=== PATIENT | male | born 1965 | race Two or more races ===

== ENCOUNTER 2025-04-09 12:35 | Inpatient (IN) | payer MEDICAID, OTHER ==
[~2025-04-09] VITALS: Ht 167.6 cm; Wt 50.6 kg
[2025-04-09] MEDS ORDERED: SODIUM CHLORIDE 0.9% 1,000 ML IV ONE (13:00)
[2025-04-09] MEDS: MORPHINE SULFATE 4 MG/ML SYR/VIAL IV ONE (13:00)
[2025-04-09] MEDS ORDERED: ONDANSETRON HCL 4 MG/2 ML VIAL IV ONE (13:00)
--- NOTE | 2025-04-09 13:06 | ED.PDOC ---
GI ASSESSMENT HPI Comments 59 y/o M, with PMHx of HTN and DM presents to the ED for CC of abdominal pain. Patient states, he has been experiencing right lower quadrant abdominal pain with associated nausea x3days. Patient reports, that he has been unable to have a bowel movement in X4days and is currently not passing gas. Patient denies vomiting, diarrhea, fever, chills, or sweats. No other symptoms or modifying factors present at this time Chief Complaint: Abdominal Pain Time Seen by MD: 13:00 Reviewed Notes: Nurses Notes, Medications, Allergies Allergies: Coded Allergies: NO KNOWN ALLERGIES (Unverified , 04/09/25) Information Source: Patient Mode of Arrival: Ambulatory Timing: Days Duration: Since onset Prehospital treatment: None Quality: None Vomitus: None Stool: Impaction Severity: Moderate Recent: None Recent Hx of: None Pain Location: RLQ Modifying Factors: Nothing Associated sign and symptoms: Nausea, Abdominal Pain Past Medical History PAST MEDICAL HISTORY: DM, HTN Surgical History: Unknown Family History Family History: Unknown Social History Smoker: Non-Smoker Alcohol: Denies ETOH Use Drugs: Denies Drug Use Lives In: Home Constitutional: denies: chills, diaphoresis, fatigue, fever, malaise, sweats, weakness, others EENTM: denies: blurred vision, double vision, ear bleeding, ear discharge, ear drainage, ear pain, ear ringing, eye pain, eye redness, hearing loss, mouth pain, mouth swelling, nasal discharge, nose bleeding, nose congestion, nose pain, photophobia, tearing, throat pain, throat swelling, voice changes, others Respiratory: denies: cough, hemoptysis, orthopnea, SOB at rest, shortness of breath, SOB with excertion, stridor, wheezing, others Cardiovascular: denies: chest pain, dizzy spells, diaphoresis, Dyspnea on exertion, edema, irregular heart beat, left arm pain, lightheadedness, palpitations, PND, syncope, others Gastrointestinal: reports: abdominal pain, constipated, nausea; denies: abdomen distended, blood streaked bowels, diarrhea, dysphagia, difficulty swallowing, hematemesis, melena, poor appetite, poor fluid intake, rectal bleeding, rectal pain, vomiting, others Genitourinary: denies: burning, dysuria, flank pain, frequency, hematuria, incontinence, penile discharge, penile sore, pain, testicle pain, testicle swelling, urgency, others Neurological: denies: dizziness, fainting, headache, left sided numbness, left sided weakness, numbness, paresthesia, pre-existing deficit, right sided numbness, right sided weakness, seizure, speech problems, tingling, tremors, weakness, others Musculoskeletal: denies: back pain, gout, joint pain, joint swelling, muscle pain, muscle stiffness, neck pain, others Integumetry: denies: bruises, change in color, change in hair/nails, dryness, laceration, lesions, lumps, rash, wounds, others Allergic/Immunocompromised: denies: Difficulty Healing, Frequent Infections, Hives, Itching, others Hematologic/Lymphatic: denies: anemia, blood clots, easy bleeding, easy bruising, swollen glands, others Endocrine: denies: excessive hunger, excessive sweating, excessive thirst, excessive urination, flushing, intolerance to cold, intolerance to heat, unexplained weight gain, unexplained weight loss, others Psychiatric: denies: anxiety, bipolar disorder, depression, hopeless, panic disorder, schizophrenia, sleepless, suicidal, others All Other Systems: Reviewed and Negative Physical Exam General Appearance: Moderate Distress HEENT: Normal ENT Inspection, Pharynx Normal, TMs Normal Neck: Full Range of Motion, Non-Tender, Normal, Normal Inspection Respiratory: Chest Non-Tender, Lungs Clear, No Accessory Muscle Use, No Respiratory Distress, Normal Breath Sounds Cardiovascular: No Edema, No JVD, No Murmur, No Gallop, Normal Peripheral Pulses, Regular Rate/Rhythm Breast Exam: Deferred Gastrointestinal: Diffuse Genitalia: Deferred Pelvic: Deferred Rectal: Deferred Extremities: No calf tenderness, Normal capillary refill, Normal inspection, Normal range of motion, Non-tender, No pedal edema Musculoskeletal : Apperance: Normal Neurologic: Alert, polisher dial II-XII nml as Tested, No Motor Deficits, Normal Affect, Normal Mood, No Sensory Deficits Cerebellar Function: Normal Reflexes: Normal Skin: Dry, Normal Color, Warm Peripheral Pulses: 3+ Radial (R), 3+ Radial (L) Lymphatic: No Adenopathy Was a procedure done? Was a procedure done?: No GI differential Dx Differential Diagnosis: Appendicitis, Cholangitis, Cholecystitis, Diverticular disease, Esophagitis, Gastritis/PUD, Gastroenteritis, Inflammatory BD X-Ray, Labs, Meds, VS Vital Signs Date Time Temp Pulse Resp B/P (MAP) Pulse Ox O2 Delivery O2 Flow Rate FiO2 04/09/25 12:40 98.2 83 16 111/70 97 98.2 [facility] [id number] [facility] [id number] Ph: [phone] DIAGNOSTIC IMAGING Diagnostic Imaging Report : [id number] Signed PATIENT: CAMERON KIRKLAND ACCT: [id number] UNIT: [id number] : 1965 LOC: ER ROOM / BED: / AGE / SEX: 59 / M ADM STATUS: REG ER SERVICE 1258 ORDERING PHYSICIAN: MARIIA RUBY MD PROCEDURE(s): ABPL - CT AB PEL WO CON-NO ORAL OR IV REASON: appy ORDER NUMBER(s): [id number], ACCESSION NUMBER(s): [id number] CT CT AB PEL WO CON-NO ORAL OR IV INDICATION: appy EXAM DATE: 04/09/2025 01:00 PM COMPARISON: None RADIATION DOSE: CTDIvol: 11 mGy, DLP: 641 mGy*cm PROCEDURE: Helical CT images were obtained of the abdomen and pelvis without IV contrast Sagittal and coronal reconstructions are provided. ORAL CONTRAST: None. ADDITIONAL IMAGES / REFORMATS: None All CT scans at this medical facility are performed using dose modulation techniques as appropriate to a performed exam including the following: Automated exposure control was utilized; adjustment of the MA and/or KV according to patient size; and use of iterative reconstruction technique. FINDINGS: LUNG BASE: Bibasilar atelectasis. LIVER: Normal. GALLBLADDER AND BILIARY TREE: No calcified gallstones. Normal caliber wall. No intra- or extrahepatic biliary ductal dilation. PANCREAS: Normal. SPLEEN: Normal. BOWEL: Enlarged appendix to 12 mm with periappendicieal fat stranding is consistent with appendicitis. ADRENALS: Normal. KIDNEYS AND URETER: Normal. BLADDER: Normal. REPRODUCTIVE ORGANS: Normal. LYMPH NODES:No lymphadenopathy. PERITONEUM: No ascites or free air. No other fluid collection. VESSELS: Scattered atherosclerotic calcifications are noted. RETROPERITONEUM: Normal. ABDOMINAL WALL: Normal. BONES: Scattered osseous degenerative changes are noted. IMPRESSION: Enlarged appendix to 12 mm with periappendicieal fat stranding is consistent with appendicitis. ATED BY: ANDRÉS TILLEY MD DICTATED DATE/TIME: 04/09/251327 SIGNED BY: ANDRÉS TILLEY MD SIGNED DATE/TIME: 04/09/251327 CC: Patient alert. Complaining of abdominal pain. Vitals stable. Answering questions. Abdomen is tender. CT scan of the abdomen does show appendicitis. Establish intravenous access. Was given fluids. Was given Ancef. Was given Flagyl. Was given morphine. Was given Zofran. Explained to the patient. Continue monitoring. Time of 1ST Reevaluation: 13:30 Reevaluation 1ST: Unchanged Patient Education/Counseling: Diagnosis, Treatment Family Education/Counseling: No Family Present SEPSIS Sepsis Screen Date sepsis recognized/suspect: Apr 09, 2025 Time Sepsis recognized/suspect: 1240 Recent Procedure: No On Antibiotic Therapy: No Respiratory Rate >20: No Heart Rate >90: No Temp<36 C (96.8 F) or >38.3 C: No SBP <90 or MAP <65 mmHG: No New Acute Mental Status Change: No Is the patient on CPAP, BIPAP,: No Physician Orders Complete Blood Count (04/09/25 12:58) Comprehensive Metabolic Panel (04/09/25 12:58) Urinalysis (04/09/25 12:58) Ct Ab Pel Wo Con-No Oral Or Iv (04/09/25 12:58) Sodium Chloride 0.9% (04/09/25 13:00) * Surgical Consult (04/09/25 ) Vital Signs Date Time Temp Pulse Resp B/P (MAP) Pulse Ox O2 Delivery O2 Flow Rate FiO2 04/09/25 12:40 98.2 83 16 111/70 97 98.2 Departure 1 Departure Time of Disposition: 13:53 Impression: Primary Impression: Acute appendicitis Qualified Codes: K35.80 - Unspecified acute appendicitis Disposition: ADMITTED INPATIENT Admit to: Med Surg Condition: Guarded Critical Care Note Critical Care Time?: Yes (90 min-critical care time only) Critical care comment: Spoke to the surgeon Stability Stability form required: No Heart Score Heart Score: Heart Score Response (Comments) Value History N/A 0 EKG N/A 0 Age N/A 0 Risk Factors N/A 0 Troponin N/A 0 Total 0 I personally scribed for MARIIA RUBY MD ([email or web address]) on 04/09/25 at 13:06. Electronically submitted by Enid Orta ([email or web address]). I personally scribed for MARIIA RUBY MD ([email or web address]) on 04/09/25 at 13:35. Electronically submitted by Enid Orta [email or web address]). MARIIA RUBY MD Apr 09, 2025 13:06
--- NOTE | 2025-04-09 13:31 | DVH ---
CT CT AB PEL WO CON-NO ORAL OR IV INDICATION: appy EXAM DATE: 04/09/2025 01:00 PM COMPARISON: None RADIATION DOSE: CTDIvol: 11 mGy, DLP: 641 mGy*cm PROCEDURE: Helical CT images were obtained of the abdomen and pelvis without IV contrast Sagittal and coronal reconstructions are provided. ORAL CONTRAST: None. ADDITIONAL IMAGES / REFORMATS: None All C T scans at this medical facility are performed using dose modulation techniques as appropriate to a p erformed exam including the following: Automated exposure control was utilized; adjustment of the MA and/or KV according to patient size; and use of iterative reconstruction technique. FINDINGS: LUNG BASE: Bibasilar atelectasis. LIVER: Normal. GALLBLADDER AND BILIARY TREE: No calcified gallstones. Normal caliber wall. No intra- or extrahepatic biliary ductal dilation. PANCREAS: Normal. SPLEEN: Normal. BOWEL: Enlarged appendix to 12 mm with periappendicieal fat stranding is consistent with appendicitis . ADRENALS: Normal. KIDNEYS AND URETER: Normal. BLADDER: Normal. REPRODUCTIVE ORGANS: Normal. LYMPH NODES:No lymphadenopathy. PERITONEUM: No ascites or free air. No other fluid collection. VESSELS: Scattered atherosclerotic calcifications are noted. RETROPERITONEUM: Normal. ABDOMINAL WALL: Normal. BONES: Scattered osseous degenerative changes are noted. IMPRESSION: Enlarged appendix to 12 mm with periappendicieal fat stranding is consistent with appendicitis.
[2025-04-09 14:19] LABS: Alanine Aminotransferase 25 U/L (7-40); Anion Gap 8 (5-15); BUN/Creatinine Ratio 12.3 (10.0-20.0); Calcium 9.3 mg/dL (8.7-10.4); Carbon Dioxide 25 mmol/L (20-31); Glucose 97 mg/dL (74-106); Sodium 141 mmol/L (136-145); Total Protein 7.5 g/dL (5.7-8.2)
[2025-04-09 14:20] LABS: Bilirubin, Total 0.8 mg/dL (0.2-1.0)
[2025-04-09 14:21] LABS: Albumin 4.8 g/dL (3.2-4.8); Alkaline Phosphatase 138 U/L (46-116); Blood Urea Nitrogen 9 mg/dL (9-23); Chloride 108 mmol/L (98-107); Potassium 3.4 mmol/L (3.5-5.1)
[2025-04-09 14:28] LABS: Hematocrit 46.9 % (41.0-53.0); Hemoglobin 16.6 g/dL (13.5-17.5); Mean Corpuscular Hemoglobin 31.5 pg (28.0-32.0); Mean Corpuscular Volume 89.1 fL (80.0-100.0); Nucleated Red Blood Cells % 0.2 %
--- NOTE | 2025-04-09 15:12 | DVHINCON2 ---
Date of service: Apr 09, 2025 Allergies: Coded Allergies: NO KNOWN ALLERGIES (Unverified , 04/09/25) Vital Signs Vital Signs Date Time Temp Pulse Resp B/P (MAP) Pulse Ox O2 Delivery O2 Flow Rate FiO2 04/09/25 12:40 98.2 83 16 111/70 97 98.2 Labs/Diagnostic Data Labs Test 04/09/25 13:27 Range/Units White Blood Count 11.0 H 4.4-10.8 10^3/uL Red Blood Count 5.26 4.5-5.90 10^6/uL Hemoglobin 16.6 13.5-17.5 g/dL Hematocrit 46.9 41.0-53.0 % Mean Corpuscular Volume 89.1 80.0-100.0 fL Mean Corpuscular Hemoglobin 31.5 28.0-32.0 pg Mean Corpuscular Hemoglobin Concent 35.4 32.0-36.0 g/dL Red Cell Distribution Width 13.9 11.8-14.3 % Platelet Count 254 140-450 10^3/uL Mean Platelet Volume 9.6 6.9-10.8 fL Neutrophils (%) (Auto) 69.6 37.0-80.0 % Lymphocytes (%) (Auto) 21.8 10.0-50.0 % Monocytes (%) (Auto) 7.3 0.0-12.0 % Eosinophils (%) (Auto) 0.8 0.0-7.0 % Basophils (%) (Auto) 0.5 0.0-2.0 % Neutrophils # (Auto) 7.7 1.6-8.6 10 ^3/uL Lymphocytes # (Auto) 2.4 0.4-5.4 10 ^3/uL Monocytes # (Auto) 0.8 0-1.3 10 ^3/uL Eosinophils # (Auto) 0.1 0-0.8 10 ^3/uL Basophils # (Auto) 0.1 0-0.2 10 ^3/uL Nucleated Red Blood Cells 0.2 % Sodium Level 141 136-145 mmol/L Potassium Level 3.4 L 3.5-5.1 mmol/L Chloride Level 108 H 98-107 mmol/L Carbon Dioxide Level 25 20-31 mmol/L Anion Gap 8 5-15 Blood Urea Nitrogen 9 9-23 mg/dL Creatinine 0.73 0.700-1.30 mg/dL Glomerular Filtration Rate Calc 105 >90 mL/min BUN/Creatinine Ratio 12.3 10.0-20.0 Serum Glucose 97 74-106 mg/dL Calcium Level 9.3 8.7-10.4 mg/dL Total Bilirubin 0.8 0.2-1.0 mg/dL Aspartate Amino Transferase (AST) 27 13-40 U/L Alanine Aminotransferase (ALT) 25 7-40 U/L Alkaline Phosphatase 138 H 46-116 U/L Total Protein 7.5 5.7-8.2 g/dL Albumin 4.8 3.2-4.8 g/dL Assessment [id number] AC APPENDICITIS LAP/OPEN APPENDECTOMY HIGH RISK FOR SURGERY PT UNDERSTANDS AND CONSENTS Plan discussed with: Patient KARTHIK LUKE MD Apr 09, 2025 15:12
--- NOTE | 2025-04-09 15:34 | DVHINCON2 ---
DATE OF CONSULTATION: 04/09/2025 HISTORY OF PRESENT ILLNESS: A 59-year-old, coming with right lower quadrant pain for 3-4 days. It got worse yesterday. Some nausea and no vomiting. No constipation or diarrhea. No hematemesis or melena. No bleeding per rectum. PAST MEDICAL HISTORY: Hypertension and diabetes. PAST SURGICAL HISTORY: Nothing significant. PHYSICAL EXAMINATION: VITAL SIGNS: Afebrile, stable signs. HEENT: With no evidence of pallor, cyanosis, or jaundice. NECK: Supple and nontender with no thyromegaly or lymphadenopathy. CHEST AND LUNGS: Clear. HEART: Within normal limits. ABDOMEN: Soft. Tender in the right lower quadrant with evidence of rebound. EXTREMITIES: Unremarkable. NEUROLOGIC: Intact. CLINICAL IMPRESSION: Acute appendicitis. PLAN: Laparoscopic possible open appendectomy. Benefits were discussed and a consent obtained. MD RICHARD Aguiar/MICHELLE TID: [id number] RECEIPT: [id number] cc: Bonifacio Agee MD
[2025-04-09 15:36] LABS: INR 0.97 (0.9-1.15); Prothrombin Time 10.3 sec (9.3-11.8)
[2025-04-09 16:22] LABS: Urine Protein, UAD Negative (Negative)
[2025-04-09] MEDS: SUCCINYLCHOLINE CHLORIDE 20 MG/ML 10ML VIAL IV ONE (18:00)
[2025-04-09] MEDS ORDERED: PROPOFOL 10 MG/ML 20 ML IV ONE (18:01)
[2025-04-09] MEDS ORDERED: HYDROmorphone HCL 2 MG/ML VL/or syr ONE (18:01)
[2025-04-09] MEDS ORDERED: fentaNYL CITRATE 100 MCG/2 ML VL ONE (18:01)
[2025-04-09] MEDS ORDERED: ONDANSETRON HCL 4 MG/2 ML VIAL ONE (18:27)
[2025-04-09] MEDS ORDERED: ROCURONIUM 10MG/ML 10ML VIAL IV ONE (18:27)
[2025-04-09] MEDS: ceFAZolin 1GM/50ML 50 ML IV ONE (18:30)
[2025-04-09] MEDS: BUPIVACAINE 0.25% INJ 50ML VIAL ONE (18:34)
[2025-04-09] MEDS ORDERED: HYDROmorphone HCL 2 MG/ML VL/or syr IV ONE (19:00)
[2025-04-09] MEDS ORDERED: SUGAMMADEX 200mg/2ml Vial (100MG/ML) IV ONE (19:02)
[2025-04-09 19:06] VITALS: RESP 15; O2SAT 97
--- NOTE | 2025-04-09 19:08 | DVHOP2 ---
Operative Report [id number] AC APPENDICITIS INTRAABD ABSCESS DRAIN INTRABD ABSCESS/LAP APPENDECTOMY EBL 5 CC NO DRAIN NO COMPLICATION STABLE TRANSFER TO RECOVERY ROOM KARTHIK LUKE MD Apr 09, 2025 19:08
[2025-04-09] MEDS: METOCLOPRAMIDE HCL 5MG/ml INJ 2ml VIAL IV ONE (19:15)
[2025-04-09] MEDS: ONDANSETRON HCL 4 MG/2 ML VIAL IV ONE (19:15)
[2025-04-09] MEDS ORDERED: HYDROmorphone HCL 2 MG/ML VL/or syr IV PRN ×2 (19:15→20:45)
[2025-04-09] MEDS ORDERED: MEPERIDINE HCL (25 MG/ML) 1ML VIAL IV PRN (19:15)
[2025-04-09] MEDS ORDERED: ACETAMINOPHEN IV 1000 MG/100ML (10MG/ML) IV PRN (19:15)
[2025-04-09] MEDS ORDERED: LISI40TA16 PO (20:24)
[2025-04-09] MEDS ORDERED: EMPA1TAB3 PO (20:24)
[2025-04-09] MEDS ORDERED: ROSU40TA81 PO (20:24)
[2025-04-09] MEDS ORDERED: HYDR25TA4 PO (20:24)
[2025-04-09 20:45] VITALS: BP 145/94; PULSE 72; RESP 20; TEMP 97.6; O2SAT 94
--- NOTE | 2025-04-09 20:53 | DVHOP ---
DATE OF SURGERY: 04/09/2025 PREOPERATIVE DIAGNOSES: Acute appendicitis, was found to be having intraabdominal abscess as well. POSTOPERATIVE DIAGNOSES: Acute appendicitis, was found to be having intraabdominal abscess as well. PROCEDURE: Drainage of intraabdominal abscess, with laparoscopic appendectomy. SURGEON: Velasquez Silverman MD EGG GATHERER: None. ANESTHESIA: General. ESTIMATED BLOOD LOSS: Close to 5 mL. DRAINS: No drains were used. COMPLICATIONS: No complications were encountered. DESCRIPTION OF PROCEDURE: The patient was prepped and draped in the usual sterile fashion, in the supine position. A supraumbilical incision was applied. It was taken down to the fascia. The Veress needle was introduced and CO2 insufflation was started at a pressure of 15 mmHg. The needle was withdrawn, replaced by the ____ mm trocar and the telescope was introduced. The appendix was found to be acutely inflamed, was distended with adjacent periappendiceal abscesses. Two 5 mm ports were applied more inferiorly ____ above the symphysis and the third midway between the upper two. The patient was then placed in Trendelenburg and right lateral decubitus position. The camera was moved to the lowermost 5 mm port. The upper 2 ports were used for the surgery. The abscess was drained out. The mesoappendix was clipped at the base using clips and the mesoappendix was then identified. The base of the appendix was identified and then transected using the Endo-RAMON stapling device. The appendix was then released in this fashion, was retrieved from the supraumbilical wound in an EndoCatch bag without any complication. Hemostasis was secured. Irrigation fluid was removed. The port sites were free of bleeding. EndoClose suture was used for the fascial closure of the supraumbilical wound. All the ports were withdrawn after all the CO2 was let out and the patient was placed supine. The wounds were then brought together using 3-0 Monocryl suture in a subcuticular fashion. Surgical glue was applied. The patient tolerated the procedure well and was taken back to the recovery room in a stable condition. MD RICHARD Aguiar/IVAN/ALVERTO/BRIGIDO TID: [id number] RECEIPT: [id number]
[2025-04-09] MEDS ORDERED: ONDANSETRON HCL 4 MG/2 ML VIAL IV PRN (22:00)
[2025-04-09] MEDS ORDERED: HYDROcodone-ACET 5/325MG TAB PO PRN (22:00)
[2025-04-09] MEDS ORDERED: cefTRIAXone 1GM/50ML D5W 50 ML IV ONE (22:00)
[2025-04-09] MEDS: cefTRIAXone 1GM/50ML D5W 50 ML IV ONE (22:21)
[2025-04-09] MEDS: MORPHINE SULFATE INJ 2 MG/ml SYRG IV PRN (22:21)
[2025-04-09] MEDS: D5W/SOD CHL 0.45% 1,000 ML IV SCH (22:29)
[2025-04-10 01:00] VITALS: BP 119/77; PULSE 82; RESP 20; TEMP 97.6; O2SAT 94
[2025-04-10 05:00] VITALS: BP 126/85; PULSE 76; RESP 20; TEMP 98.3; O2SAT 93
[2025-04-10 08:32] LABS: Hematocrit 42.1 % (41.0-53.0); Hemoglobin 14.8 g/dL (13.5-17.5); Mean Corpuscular Hemoglobin 31.5 pg (28.0-32.0); Mean Corpuscular Volume 89.5 fL (80.0-100.0); Nucleated Red Blood Cells % 0.0 %
--- NOTE | 2025-04-10 08:42 | DVHHPRES ---
History of Present Illness Resident Creating Document: SHERYL TEJEDA RESIDENT History of Present Illness Heber Nguyen is a 59 yo male, with a past medical history of HTN, sleep apnea and DM2. The patient presented to the ED with chief complaint of 3 days of abdominal pain, cramp-like, localized in the right lower abdomen, no associated with food, no alleviate factors, associated with nausea and chills. The patient also reports no having a bowel movement in 3 days. Today, the pain became continuous, and exacerbate to 10/10 and he stopped passing gases, this prompted his visit to the ED. The patient denies vomiting, diarrhea, fever, or other symptoms. On initial evaluation, CT scan showed: Enlarged appendix to 12 mm with periappendicieal fat stranding is consistent with appendicitis. WBC 11.0 x10e3/uL, neutrophils 7.7, Potassium 3.4meq/l. Surgery team was consulted. Cardiovascular: hyperipidemia Pulmonary: Other (Sleep apnea, with "Inspire" device.) Past Surgical History: Cataract Removal, Other (Ankle surgery. ) Family History: Cancer, CAD, Hypertension Smoke: No ALCOHOL: none Drugs: None Lives: with Family Review of Systems Constitutional: Yes: Chills; No: Fever, Sweats, Weakness, Malaise, Other Eyes: No: Pain, Vision change, Conjunctivae inflammation, Eyelid inflammation, Other, Redness ENT: No: Ear pain, Ear discharge, Nose pain, Nose discharge, Nose congestion, Mouth pain, Mouth swelling, Throat pain, Throat swelling, Other Respiratory: No: Cough, Dry, Shortness of breath, SOB with excertion, Wheezing, Hemoptysis, Pleuritic Pain, Sputum, Wheezing, Other Cardiovascular: No: Chest Pain, Palpitations, Orthopnea, Paroxysmal Noc. Dyspnea, Edema, Lt Headedness, Other Gastrointestinal: Nausea, Abdominal Pain, Constipation; No: Vomiting, Diarrhea, Melena, Hematochezia, Other Genitourinary: No Dysuria, No Frequency, No Incontinence, No Hematuria, No Retention, No Other Musculoskeletal: No: other, neck pain, shoulder pain, arm pain, back pain, hand pain, leg pain, foot pain Skin: No: Rash, Lesions, Jaundice, Bruising, Other Neurological: No: Weakness, Numbness, Incoordination, Change in speech, Confusion, Seizures, Other Allergies: Coded Allergies: NO KNOWN ALLERGIES (Unverified , 04/09/25) Medications Current Medications Medications Dose Ordered Sig/Camille Route Start Time Stop Time Status Last Admin Dose Admin Dextrose/Sodium Chloride 1,000 ml @ 75 mls/hr [id number] IV 04/09/25 20:45 04/09/25 22:29 75 MLS/HR Acetaminophen/ Hydrocodone Bitart 1 tab Q4HP PRN PO 04/09/25 22:00 Ondansetron HCl 4 mg Q4HP PRN IV 04/09/25 22:00 Morphine Sulfate 2 mg Q4HPRN PRN IV 04/09/25 22:00 04/10/25 05:51 2 MG Exam Vital Signs Vital Signs Date Time Temp Pulse Resp B/P (MAP) Pulse Ox O2 Delivery O2 Flow Rate FiO2 04/10/25 06:41 82 14 120/75 04/10/25 05:00 98.3 93 98.3 04/09/25 20:24 Nasal Cannula* 2 28 General Appearance: Alert, Oriented X3, Cooperative, mild distress HEENT: Atraumatic, PERRLA, Mucous membr. moist/pink Respiratory: Clear to auscultation, Normal air movement Cardiovascular: Regular rate, Normal S1, Normal S2, No murmurs Abdominal: Other (Difussed Tender abdomen. ) Skin: No rashes, No breakdown, No significant lesion Neuro: Normal speech, Strength at 5/5 X4 ext, Normal tone, Sensation intact Psych/Mental Status: Mental status NL, Mood NL Labs/Xrays Labs Test 04/09/25 19:48 04/09/25 15:07 04/09/25 13:27 04/09/25 12:43 Range/Units POC Glucose 101 70-106 mg/dl Prothrombin Time 10.3 9.3-11.8 sec Prothrombin Time INR 0.97 0.9-1.15 White Blood Count 11.0 H 4.4-10.8 10^3/uL Red Blood Count 5.26 4.5-5.90 10^6/uL Hemoglobin 16.6 13.5-17.5 g/dL Hematocrit 46.9 41.0-53.0 % Mean Corpuscular Volume 89.1 80.0-100.0 fL Mean Corpuscular Hemoglobin 31.5 28.0-32.0 pg Mean Corpuscular Hemoglobin Concent 35.4 32.0-36.0 g/dL Red Cell Distribution Width 13.9 11.8-14.3 % Platelet Count 254 140-450 10^3/uL Mean Platelet Volume 9.6 6.9-10.8 fL Neutrophils (%) (Auto) 69.6 37.0-80.0 % Lymphocytes (%) (Auto) 21.8 10.0-50.0 % Monocytes (%) (Auto) 7.3 0.0-12.0 % Eosinophils (%) (Auto) 0.8 0.0-7.0 % Basophils (%) (Auto) 0.5 0.0-2.0 % Neutrophils # (Auto) 7.7 1.6-8.6 10 ^3/uL Lymphocytes # (Auto) 2.4 0.4-5.4 10 ^3/uL Monocytes # (Auto) 0.8 0-1.3 10 ^3/uL Eosinophils # (Auto) 0.1 0-0.8 10 ^3/uL Basophils # (Auto) 0.1 0-0.2 10 ^3/uL Nucleated Red Blood Cells 0.2 % Sodium Level 141 136-145 mmol/L Potassium Level 3.4 L 3.5-5.1 mmol/L Chloride Level 108 H 98-107 mmol/L Carbon Dioxide Level 25 20-31 mmol/L Anion Gap 8 5-15 Blood Urea Nitrogen 9 9-23 mg/dL Creatinine 0.73 0.700-1.30 mg/dL Glomerular Filtration Rate Calc 105 >90 mL/min BUN/Creatinine Ratio 12.3 10.0-20.0 Serum Glucose 97 74-106 mg/dL Calcium Level 9.3 8.7-10.4 mg/dL Total Bilirubin 0.8 0.2-1.0 mg/dL Aspartate Amino Transferase (AST) 27 13-40 U/L Alanine Aminotransferase (ALT) 25 7-40 U/L Alkaline Phosphatase 138 H 46-116 U/L Total Protein 7.5 5.7-8.2 g/dL Albumin 4.8 3.2-4.8 g/dL Urine Color Yellow Yellow Urine Clarity Clear Clear Urine pH 5.5 5.0-9.0 Urine Specific [place] 1.037 H 1.001-1.035 Urine Protein Negative Negative Urine Ketones Negative Negative Urine Blood Negative Negative /uL Urine Nitrite Negative Negative Urine Bilirubin Negative Negative Urine Urobilinogen Normal Negative mg/dL Urine Leukocyte Esterase Negative Negative /uL Urine RBC 1 0 - 3 /hpf Urine Microscopic WBC 2 0-3 /HPF Urine Squamous Epithelial Cells Few <5 /hpf Urine Bacteria None seen None Seen /hpf Urine Glucose 4+ H Normal mg/dL SEPSIS Sepsis Screen Date sepsis recognized/suspect: Apr 09, 2025 Time Sepsis recognized/suspect: 1240 Recent Procedure: No On Antibiotic Therapy: No Respiratory Rate >20: No Heart Rate >90: No Temp<36 C (96.8 F) or >38.3 C: No SBP <90 or MAP <65 mmHG: No New Acute Mental Status Change: No Is the patient on CPAP, BIPAP,: No Vital Signs Date Time Temp Pulse Resp B/P (MAP) Pulse Ox O2 Delivery O2 Flow Rate FiO2 04/10/25 06:41 82 14 120/75 04/10/25 05:51 76 20 126/85 04/10/25 05:00 98.3 76 20 126/85 (99) 93 98.3 04/10/25 05:00 76 20 126/85 04/10/25 01:00 97.6 82 20 119/77 (91) 94 97.6 Medications Medications Dose Ordered Sig/Camille Route Start Time Stop Time Status Last Admin Dose Admin Ceftriaxone Sodium 50 ml @ 100 mls/hr ONCE ONCE IV 04/09/25 21:30 04/09/25 21:59 DC 04/09/25 22:21 100 MLS/HR Dextrose/Sodium Chloride 1,000 ml @ 75 mls/hr [id number] IV 04/09/25 20:45 04/09/25 22:29 75 MLS/HR Morphine Sulfate 2 mg Q4HPRN PRN IV 04/09/25 22:00 04/10/25 05:51 2 MG Assessment/Plan Assessment/Plan #Acute appendicitis #Intractable abdominal pain IV fluids Morphine IV Ceftriaxone IV Zofran 4mg IV Surgical consult #Hypokalemia Potassium replenish #DM2 HbA1c #Essential Hypertension Medication reconciliation #Sleep apnea Surface implant device. #Obesity Counseling Life style changes. Diet: NPO DVT prophylaxis PUD prophylaxis Protonic Goals of care discussed with the patient > 35 min. Discussed plan of care with Dr. [place] Code status: Full code PCP: Dr. [place] Plan discussed with: Patient, the patient agrees with the plan. Plan discussed with: Patient My Orders Orders - SHERYL TEJEDA RESIDENT Procedure Category Date Status Time Admit ADMIT 04/09/25 Transmitted 21:54 Code Status CODE 04/09/25 Transmitted 21:54 Review Orders With KINSEY 04/09/25 In Process Adm.Md 21:54 Notify Md Of Changes KINSEY 04/09/25 In Process From Base 21:54 Advance Directive KINSEY 04/09/25 In Process 21:54 Patient Condition ORDERS 04/09/25 Transmitted 21:54 Allergies KINSEY 04/09/25 In Process 21:54 Hydrocodone-Acet PHA 04/09/25 In Process 5/325mg Tab ([place] 22:00 Ondansetron Hcl PHA 04/09/25 In Process (Zofran) 22:00 Morphine Sulfate PHA 04/09/25 In Process Injection 22:00 Notify Md Of Changes KINSEY 04/09/25 In Process From Base 21:54 Complete Blood Count LAB 04/10/25 Logged 04:00 Comprehensive LAB 04/10/25 Logged Metabolic Panel 04:00 Clear Liq Diet DIET 04/10/25 Transmitted Breakfast Common Visit Codes: 58777-ATKBYNU INP/OBS CARE (HIGH) Secondary Visit Codes: 67052-PGTPLRRO CARE PLAN 30 MINUTES SHERYL TEJEDA RESIDENT Apr 10, 2025 08:42
[2025-04-10 08:54] LABS: Alanine Aminotransferase 22 U/L (7-40); Albumin 4.2 g/dL (3.2-4.8); Alkaline Phosphatase 113 U/L (46-116); Anion Gap 8 (5-15); BUN/Creatinine Ratio 12.2 (10.0-20.0); Calcium 8.9 mg/dL (8.7-10.4); Carbon Dioxide 27 mmol/L (20-31); Chloride 104 mmol/L (98-107); Glucose 101 mg/dL (74-106); Sodium 139 mmol/L (136-145); Total Protein 6.5 g/dL (5.7-8.2)
[2025-04-10 08:55] LABS: Bilirubin, Total 0.8 mg/dL (0.2-1.0)
[2025-04-10 08:59] LABS: Blood Urea Nitrogen 9 mg/dL (9-23); Potassium 3.0 mmol/L (3.5-5.1)
[2025-04-10 09:00] VITALS: BP 129/78; PULSE 102; RESP 16; TEMP 100.3; O2SAT 91
[2025-04-10] MEDS ORDERED: cefTRIAXone 1GM/50ML D5W 50 ML IV SCH (09:00)
[2025-04-10] MEDS ORDERED: ENOXAPARIN SOD 40 MG/0.4 ML SYRINGE SC SCH (10:00)
[2025-04-10] MEDS: KETOROLAC TROMETH 30 MG/ML 1ML VIAL IV ONE (10:29)
[2025-04-10] MEDS: cefTRIAXone 1GM/50ML D5W 50 ML IV SCH (10:29)
[2025-04-10] MEDS: LISINOPRIL 20 MG TAB PO SCH (10:30)
[2025-04-10] MEDS: PANTOPRAZOLE 40 MG/10 ML VIAL INJ IV SCH (10:30)
[2025-04-10] MEDS: ATORVASTATIN 20 MG TAB PO ONE (10:30)
[2025-04-10 11:26] LABS: Hematocrit 41.7 % (41.0-53.0); Hemoglobin 14.9 g/dL (13.5-17.5); Mean Corpuscular Hemoglobin 31.7 pg (28.0-32.0); Mean Corpuscular Volume 88.8 fL (80.0-100.0); Nucleated Red Blood Cells % 0.0 %
[2025-04-10] MEDS: ACETAMINOPHEN 325 MG TAB PO SCH (11:41)
[2025-04-10 13:00] VITALS: BP 104/64; PULSE 68; RESP 16; TEMP 99.4; O2SAT 90
[2025-04-10] MEDS: POTASSIUM CHLORIDE 60 MEQ, LIDOCAINE 1% (LOCAL ANESTH.) 6 ML in SODIUM CHL 0.9% 500 ML IV ONE (13:05)
--- NOTE | 2025-04-10 16:38 | DVHPNRES ---
Progress Note Date Seen: Apr 10, 2025 Resident Creating Document: MIGUELITO KELSEY RESIDENT Medical Necessity Reason Pt with a Central, PICC or Fol: No Subjective Review of Systems 53-year-old male with history of diabetes mellitus, hypertension, hyperlipidemia, degenerative spinal disease presented to the ED with complaints of abdominal pain and constipation for 4 days. He describes the pain diffuse abdominal, constant, 10/10 in intensity with nuclear exacerbating or relieving factor. He also reports of nausea. He denies fever, vomiting, chest pain, shortness of breath, or any sick contact. Upon admission, CT scan was performed and showed showed appendicitis. Surgery consulted, taking the patient to the OR and performed laparoscopic appendectomy with abscess drainage. Previous hospitalization: ankle surgery in 2019, cataract surgery in 2023 PMHx: diabetes mellitus, hypertension, hyperlipidemia, degenerative spinal disease PSHx: ankle surgery in 2019, cataract surgery in 2023 Family history: Unknown Social history: 40 year smoking history [on and off], occasional alcohol intake, no recreational drug use Home medication: Jardiance, Hydrochlorothiazide, Lisinopril, Rosuvastatin, Meloxicam, Gabapentin Allergic history: None General: patient denies fever, fatigue, weakness, sweating, any recent changes in appetite and weight HEENT: No headaches, visiual changes, hearing loss, tinnitus, nasal congestion and discharge, and sore throat. Cardiovascular: c/o chest pain since today,no palpitations, dyspnea on exertion, orthopnea, or claudication. Respiratory: No cough, and wheezing. Gastrointestinal: Complaints of abdominal pain, constipation for 4 days. Has episodes of Nausea. No vomiting, dysphagia, odynophagia, heartburn, flatulence, bloating, diarrhea, or blood in stool. Genitourinary: No dysuria, hematuria, discharge, frequency, urgency, nocturia, incontinence, and urinary retention. Endocrine: No heat or cold intolerance, polydipsia, polyuria, and polyphagia. Neurological: No dizziness, extremity weakness and numbness, tremors, gait disturbance, seizures, and memory impairment. Psychiatric: Denies depression, anxiety,or insomnia. Musculoskeletal: Denies neck pain, stiffness and swelling, back pain, muscle weakness, joint pain, stiffness, swelling, or limited range of motion. Skin: No rashes, itching, skin lesion, changes in hair, nail, skin texture. Hematologic/Lymphatic: Denies easy bruising, bleeding tendencies, or lymph node enlargement. He is now status post appendectomy with abscess drainage. currently he complains of abdominal pain around the incision site rated 10/10 in severity and chest pain. ECG showed normal sinus rhythm. He has not passed stools or gas since the surgery. Objective vital signs Vital Sign Date Time Temp Pulse Resp B/P (MAP) Pulse Ox O2 Delivery O2 Flow Rate FiO2 04/10/25 06:41 82 14 120/75 04/10/25 05:00 98.3 93 98.3 04/09/25 20:24 Nasal Cannula* 2 28 Total Intake and Output 04/09/25 04/09/25 04/10/25 15:00 23:00 07:00 Intake Total 825 ml Balance 825 ml medications Current Medications Medications Dose Ordered Sig/Camille Route Start Time Stop Time Status Last Admin Dose Admin Dextrose/Sodium Chloride 1,000 ml @ 75 mls/hr [id number] IV 04/09/25 20:45 04/09/25 22:29 75 MLS/HR Acetaminophen/ Hydrocodone Bitart 1 tab Q4HP PRN PO 04/09/25 22:00 Ondansetron HCl 4 mg Q4HP PRN IV 04/09/25 22:00 Ceftriaxone Sodium 50 ml @ 100 mls/hr DAILY@09 IV 04/10/25 09:00 Metronidazole 100 ml @ 100 mls/hr Q8HR IV 04/10/25 08:45 Pantoprazole Sodium 40 mg DAILY IV 04/10/25 10:00 Enoxaparin Sodium 40 mg DAILY SC 04/10/25 10:00 UNV Ceftriaxone Sodium 50 ml @ 100 mls/hr DAILY@09 IV 04/10/25 09:00 UNV Metronidazole 100 ml @ 100 mls/hr Q8HR IV 04/10/25 14:00 UNV Ketorolac Tromethamine 15 mg Q6HPRN PRN IV 04/10/25 09:30 04/15/25 09:29 Lisinopril 20 mg DAILY PO 04/10/25 10:00 Atorvastatin Calcium 40 mg HS PO 04/10/25 22:00 Examination General Appearance: Alert, Oriented X3, Cooperative, Moderately distressed HEENT: Atraumatic, PERRLA, EOMI, Mucous membrane moist/pink Respiratory: Clear to auscultation, Normal air movement Cardiovascular: Regular rate, Normal S1, Normal S2, No murmurs, no chest wall tenderness Abdominal: Mild Diffuse tenderness around the incision site, Incision site clean and sutures intact, with no drainage or infection signs. Normal bowel sounds, Soft, No hepatospenomegaly, No masses Extremities: No clubbing, No cyanosis, No edema, Normal pulses, No tenderness/swelling Skin: No rashes, No breakdown, No significant lesion Neuro: Normal gait, Normal speech, Strength at 5/5 X4 ext, Normal tone, Sensation intact, Cranial nerves 3-12 NL, Reflexes 2+ Psych/Mental Status: Mental status NL, Mood NL laboratory and microbiology Laboratory Tests 04/10/25 06:54 Test 04/10/25 06:54 Range/Units Serum Glucose 101 74-106 mg/dL Problem List/Assessment/Plan Problem List/Assessment/Plan Acute appendicitis Intra-abdominal abscess status post laparoscopy appendectomy with abscess drainage * On antibiotics, ceftriaxone and metronidazole * Ketorolac for pain * Acetaminophen for fever * Ondansetron nausea * IV fluid Type 2 Diabetes Mellitus * On Jardiance Hypertension * On Lisinopril Hyperlipidemia * On Rosuvastatin DIET: Clear Liquid diet GI PROPHYLAXIS:: Protonix CODE STATUS: Goal of care discussed for more than 21 minutes, full code DISPOSITION: [facility] RECONCILED HOME MEDS: Jardiance, Hydrochlorothiazide, Lisinopril, Rosuvastatin, Meloxicam, Gabapentin PCP: Does not remember the name Patient's status and plan discussed with the patient. Case discussed with Dr. Meadows Plan discussed with: Patient, Other (RN) My Orders My Orders Orders - MIGUELITO KELSEY Procedure Category Date Status Time Ceftriaxone 1gm/50ml PHA 04/10/25 In Process D5w (Rocephin) 09:00 Metronidazole PHA 04/10/25 In Process 500mg/100ml (Flagyl 08:45 Communication Order ORDERS 04/10/25 Transmitted 09:00 Date of Service: Apr 10, 2025 Billing Provider: ELLEN MEADOWS MD Common Visit Codes: [id number] INP/OBS CARE(HIGH) MIGUELITO KELSEY Apr 10, 2025 11:21 ELLEN MEADOWS MD Apr 14, 2025 20:30
[2025-04-10 17:00] VITALS: BP 115/78; PULSE 65; RESP 16; TEMP 99.1; O2SAT 90
[2025-04-10] MEDS: KETOROLAC TROMETH 30 MG/ML 1ML VIAL IV PRN (19:55)
[2025-04-10 20:43] VITALS: BP 129/73; PULSE 63; RESP 18; TEMP 98.4; O2SAT 90
[2025-04-10] MEDS: ATORVASTATIN 20 MG TAB PO SCH (21:35)
[2025-04-11 01:00] VITALS: BP 130/83; PULSE 63; RESP 18; TEMP 97.7; O2SAT 92
[2025-04-11 05:00] VITALS: BP 125/76; PULSE 58; RESP 18; TEMP 98.1; O2SAT 94
[2025-04-11 06:49] LABS: Hematocrit 41.1 % (41.0-53.0); Hemoglobin 14.9 g/dL (13.5-17.5); Mean Corpuscular Hemoglobin 32.3 pg (28.0-32.0); Mean Corpuscular Volume 89.0 fL (80.0-100.0); Nucleated Red Blood Cells % 0.0 %
[2025-04-11 07:10] LABS: Alanine Aminotransferase 18 U/L (7-40); Albumin 4.0 g/dL (3.2-4.8); Alkaline Phosphatase 100 U/L (46-116); Anion Gap 8 (5-15); BUN/Creatinine Ratio 16.2 (10.0-20.0); Bilirubin, Total 1.0 mg/dL (0.2-1.0); Blood Urea Nitrogen 12 mg/dL (9-23); Calcium 8.8 mg/dL (8.7-10.4); Carbon Dioxide 25 mmol/L (20-31); Glucose 89 mg/dL (74-106); Potassium 3.6 mmol/L (3.5-5.1); Sodium 143 mmol/L (136-145); Total Protein 6.2 g/dL (5.7-8.2)
[2025-04-11 07:25] LABS: Chloride 110 mmol/L (98-107)
[2025-04-11 08:00] VITALS: PULSE 91; RESP 16; O2SAT 95
[2025-04-11 09:00] VITALS: BP 185/102; PULSE 83; RESP 16; TEMP 98.2; O2SAT 98
--- NOTE | 2025-04-11 10:46 | DVHPN2 ---
Progress Note Date Seen: Apr 11, 2025 Medical Necessity Reason Pt with a Central, PICC or Fol: No Objective vital signs Vital Sign Date Time Temp Pulse Resp B/P (MAP) Pulse Ox O2 Delivery O2 Flow Rate FiO2 04/11/25 09:00 98.2 83 16 185/102 (129) 98 98.2 04/10/25 20:00 Nasal Cannula* 2 28 Total Intake and Output 04/10/25 04/10/25 04/11/25 15:00 23:00 07:00 Intake Total 250 ml 675 ml 700 ml Balance 250 ml 675 ml 700 ml medications Current Medications Medications Dose Ordered Sig/Camille Route Start Time Stop Time Status Last Admin Dose Admin Dextrose/Sodium Chloride 1,000 ml @ 75 mls/hr [id number] IV 04/09/25 20:45 04/09/25 22:29 75 MLS/HR Acetaminophen/ Hydrocodone Bitart 1 tab Q4HP PRN PO 04/09/25 22:00 Hold Ondansetron HCl 4 mg Q4HP PRN IV 04/09/25 22:00 Ceftriaxone Sodium 50 ml @ 100 mls/hr DAILY@09 IV 04/10/25 09:00 04/10/25 10:29 100 MLS/HR Metronidazole 100 ml @ 100 mls/hr Q8HR IV 04/10/25 08:45 04/11/25 05:02 100 MLS/HR Pantoprazole Sodium 40 mg DAILY IV 04/10/25 10:00 04/10/25 10:30 40 MG Enoxaparin Sodium 40 mg DAILY SC 04/10/25 10:00 UNV Ceftriaxone Sodium 50 ml @ 100 mls/hr DAILY@ IV 04/10/25 09:00 UNV Metronidazole 100 ml @ 100 mls/hr Q8HR IV 04/10/25 14:00 UNV Ketorolac Tromethamine 15 mg Q6HPRN PRN IV 04/10/25 09:30 04/15/25 09:29 04/11/25 05:02 15 MG Lisinopril 20 mg DAILY PO 04/10/25 10:00 04/10/25 10:30 20 MG Atorvastatin Calcium 40 mg HS PO 04/10/25 22:00 04/10/25 21:35 40 MG Acetaminophen 650 mg Q6HR PO 04/10/25 12:00 04/11/25 00:25 650 MG laboratory and microbiology Laboratory Tests 04/11/25 05:50 Test 04/11/25 05:50 Range/Units Serum Glucose 89 74-106 mg/dL Problem List/Assessment/Plan Problem List/Assessment/Plan AFEBRILE VSS ABD SOFT WOUNDS HEALING NEFTALI DIET NO COMPLICATIONS CLEARED FOR DISCHARGE INSTRUCTIONS RE DIET ACTIVITY, F/UP GIVEN NURSE AND FAMILY AT BEDSIDE Plan discussed with: Patient KARTHIK LUKE MD Apr 11, 2025 10:46
[2025-04-11 13:00] VITALS: BP 148/90; PULSE 91; RESP 16; TEMP 98.2; O2SAT 92
[2025-04-11] MEDS ORDERED: AUG875T PO (15:24)
[2025-04-11] MEDS ORDERED: IBU600T PO (15:24)
--- NOTE | 2025-04-11 19:52 | DVHDSRES ---
Discharge Summary Date of Admission Resident Creating Document: MIGUELITO KELSEY RESIDENT Apr 09, 2025 at 20:18 Date of Discharge: Apr 11, 2025 Labs/Diagnostic Data: Laboratory Results Test 04/11/25 05:50 04/10/25 10:48 04/10/25 06:54 04/09/25 19:48 White Blood Count 11.5 10^3/uL (4.4-10.8) Red Blood Count 4.62 10^6/uL (4.5-5.90) Hemoglobin 14.9 g/dL (13.5-17.5) Hematocrit 41.1 % (41.0-53.0) Mean Corpuscular Volume 89.0 fL (80.0-100.0) Mean Corpuscular Hemoglobin 32.3 pg (28.0-32.0) Mean Corpuscular Hemoglobin Concent 36.3 g/dL (32.0-36.0) Red Cell Distribution Width 13.7 % (11.8-14.3) Platelet Count 200 10^3/uL (140-450) Mean Platelet Volume 9.2 fL (6.9-10.8) Neutrophils (%) (Auto) 74.9 % (37.0-80.0) Lymphocytes (%) (Auto) 15.3 % (10.0-50.0) Monocytes (%) (Auto) 9.0 % (0.0-12.0) Eosinophils (%) (Auto) 0.6 % (0.0-7.0) Basophils (%) (Auto) 0.2 % (0.0-2.0) Neutrophils # (Auto) 8.6 10 ^3/uL (1.6-8.6) Lymphocytes # (Auto) 1.8 10 ^3/uL (0.4-5.4) Monocytes # (Auto) 1.0 10 ^3/uL (0-1.3) Eosinophils # (Auto) 0.1 10 ^3/uL (0-0.8) Basophils # (Auto) 0 10 ^3/uL (0-0.2) Nucleated Red Blood Cells 0.0 % Sodium Level 143 mmol/L (136-145) Potassium Level 3.6 mmol/L (3.5-5.1) Chloride Level 110 mmol/L (98-107) Carbon Dioxide Level 25 mmol/L (20-31) Anion Gap 8 (5-15) Blood Urea Nitrogen 12 mg/dL (9-23) Creatinine 0.74 mg/dL (0.700-1.30) Glomerular Filtration Rate Calc 105 mL/min (>90) BUN/Creatinine Ratio 16.2 (10.0-20.0) Serum Glucose 89 mg/dL (74-106) Calcium Level 8.8 mg/dL (8.7-10.4) Total Bilirubin 1.0 mg/dL (0.2-1.0) Aspartate Amino Transferase (AST) 24 U/L (13-40) Alanine Aminotransferase (ALT) 18 U/L (7-40) Alkaline Phosphatase 100 U/L (46-116) Total Protein 6.2 g/dL (5.7-8.2) Albumin 4.0 g/dL (3.2-4.8) Magnesium Level 1.7 mg/dL (1.6-2.6) Hemoglobin A1c 5.8 % A1C (<5.7) POC Glucose 101 mg/dl (70-106) Test 04/09/25 15:07 04/09/25 12:43 Prothrombin Time 10.3 sec (9.3-11.8) Prothrombin Time INR 0.97 (0.9-1.15) Urine Color Yellow (Yellow) Urine Clarity Clear (Clear) Urine pH 5.5 (5.0-9.0) Urine Specific Parrish 1.037 (1.001-1.035) Urine Protein Negative (Negative) Urine Ketones Negative (Negative) Urine Blood Negative /uL (Negative) Urine Nitrite Negative (Negative) Urine Bilirubin Negative (Negative) Urine Urobilinogen Normal mg/dL (Negative) Urine Leukocyte Esterase Negative /uL (Negative) Urine RBC 1 /hpf (0 - 3) Urine Microscopic WBC 2 /HPF (0-3) Urine Squamous Epithelial Cells Few /hpf (<5) Urine Bacteria None seen /hpf (None Seen) Urine Glucose 4+ mg/dL (Normal) Other Laboratory Tests 04/11/25 05:50 Brief Hx & Hospital Course: HISTORY OF PRESENT ILLNESS: 53-year-old male with history of diabetes mellitus, hypertension, hyperlipidemia, degenerative spinal disease presented to the ED with complaints of abdominal pain and constipation for 4 days. He describes the pain diffuse abdominal, constant, 10/10 in intensity with nuclear exacerbating or relieving factor. He also reports of nausea. He denies fever, vomiting, chest pain, shortness of breath, or any sick contact. Upon admission, CT scan was performed and showed showed appendicitis. Surgery consulted, taking the patient to the OR and performed laparoscopic appendectomy with abscess drainage. Previous hospitalization: ankle surgery in 2019, cataract surgery in 2023 PMHx: diabetes mellitus, hypertension, hyperlipidemia, degenerative spinal disease PSHx: ankle surgery in 2019, cataract surgery in 2023 Family history: Unknown Social history: 40 year smoking history [on and off], occasional alcohol intake, no recreational drug use Home medication: Jardiance, Hydrochlorothiazide, Lisinopril, Rosuvastatin, Meloxicam, Gabapentin Allergic history: None HOSPITAL COURSE: Patient with a bed on the line of acute appendicitis. Surgery was consulted, the patient was underwent laparoscopic appendectomy with abscess drainage. With no significant perioperative complication. Post operation, the patient was started on clear liquid diet, but the patient had some nausea and was not able to pass gas and stool. During hospital admission home medication were continued. During hospital admission the patient was also given metronidazole and Rocephin. On 04/11/2025, the patient was feeling better since admission. Patient was able to eat, had passed gas. Discharge plan discussed with the patient the patient discharged home. DISCHARGE PLAN: Follow up with the PCP within 1 week of the discharge. Continue home meds Keep abdominal binder for 14 days, do not picker tender more than 5 kg weight for 2 weeks. 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 Medications: Continue home meds Scheduled Amoxicillin & Pot Clavulanate (Augmentin Tablet), 875 MG PO BID Hydrochlorothiazide (Hydrochlorothiazide), 1 TAB PO DAILY, (Reported) Lisinopril (Lisinopril), 1 TAB PO DAILY, (Reported) Rosuvastatin Calcium (Crestor), 1 TAB PO DAILY, (Reported) Scheduled PRN Ibuprofen Micronized (Motrin Tablet), 600 MG PO TID PRN Miscellaneous Medications Empagliflozin (Jardiance), 25 MG PO, (Reported) Discharge Statement: "Patient was advised to return to the ER or call 911 if any headaches, dizziness, shortness of breath, chest pain, abdominal pain, bleeding, fevers, or worsening of medical condition. Patient was counseled about treatment plan, medications, possible side effects, patientverbalized understanding. All questions were answered to the best of my ability. This discharge took greater then 30 minutes in planning, reviewing documentation, counseling the patient, and discussing with other team members." ASSESSMENT ASSESSMENT Assessment Acute Appendicitis s/p paraoscopy appedectomy Date of Service: Apr 11, 2025 Billing Provider: ELLEN MEADOWS MD Common Visit Codes: 06296-UZB/OBS DISCH DAY >30min MIGUELITO KELSEY RESIDENT Apr 11, 2025 19:52 ELLEN MEADOWS MD Apr 14, 2025 20:50
--- NOTE | 2025-04-12 07:20 | ECG ---
[facility] Test Date: 2025-04-10 Test Time: 07:45:58 Pat Name: CAMERON KIRKLAND Department: Respiratoy Room: 0292 B Gender: M [employer]r: : [id number] Requested By: MIGUELITO KELSEY Order Number: [id number] Reading MD: Derrek Verma Measurements Intervals [place] Rate: 91 P: 40 [place]: 136 QRS: 7 QRSD: 94 T: 2 QT: 353 QTc: 435 Interpretive Statements Sinus rhythm Consider left atrial enlargement Electronically Signed On 04-15-2025 18:33:36 PDT by Derrek Verma Please click the below link to view image of tracing.
== END 2025-04-11 14:48 | disposition home or self-care (01) | DRG 233 ==
LOC: ER 12:35 → WEST WING 20:18
PROVIDERS: ADMIT Student in an Organized Health Care Education/Training Program; ATTEND Emergency Medicine
PROC: 0W9G4ZZ Drainage of Peritoneal Cavity, Percutaneous Endoscopic Approach (ICD-10-PCS; 2025-04-09)
PROC: 0DTJ4ZZ Resection of Appendix, Percutaneous Endoscopic Approach (ICD-10-PCS; principal; 2025-04-09 18:13)
DX: K35.33 Acute appendicitis with perforation, localized peritonitis, and gangrene, with abscess (principal); E11.9 Type 2 diabetes mellitus without complications; Z68.32 Body mass index [BMI] 32.0-32.9, adult; E66.9 Obesity, unspecified; I10 Essential (primary) hypertension; E78.5 Hyperlipidemia, unspecified; E87.6 Hypokalemia; G47.30 Sleep apnea, unspecified
CPT/HCPCS: 36415; 74176; 80053; 81001; 82962; 83036; 83735; 85025; 85610; 93005; 96365; 99291; 99292; G0378; J0330; J1885; J2003; J2405; J2470; J2704; J3490

== ENCOUNTER 2025-05-01 11:49 | Outpatient (CLI) | payer MEDICAID ==
[~2025-05-01 11:49] MED LIST: AUG875T PO; EMPA1TAB3 PO; HYDR25TA4 PO; IBU600T PO; LISI40TA16 PO; ROSU40TA81 PO
[2025-05-01 12:34] LABS: Hematocrit 45.3 % (41.0-53.0); Hemoglobin 16.1 g/dL (13.5-17.5); Mean Corpuscular Hemoglobin 31.5 pg (28.0-32.0); Mean Corpuscular Volume 88.8 fL (80.0-100.0); Nucleated Red Blood Cells % 0.1 %
[2025-05-01 13:03] LABS: Alanine Aminotransferase 31 U/L (7-40); Anion Gap 8 (5-15); BUN/Creatinine Ratio 14.9 (10.0-20.0); Blood Urea Nitrogen 10 mg/dL (9-23); Calcium 9.2 mg/dL (8.7-10.4); Carbon Dioxide 23 mmol/L (20-31); Sodium 139 mmol/L (136-145); Total Protein 7.3 g/dL (5.7-8.2)
[2025-05-01 13:04] LABS: Albumin 4.7 g/dL (3.2-4.8); Bilirubin, Total 0.8 mg/dL (0.2-1.0); Cholesterol 121 mg/dL (< 200)
[2025-05-01 13:08] LABS: Alkaline Phosphatase 118 U/L (46-116); Chloride 108 mmol/L (98-107); Glucose 120 mg/dL (74-106); HDL Cholesterol 37 mg/dL (40-59); Potassium 3.4 mmol/L (3.5-5.1); Triglycerides 157 mg/dL (< 150)
[2025-05-01 14:09] LABS: Hepatitis A Total Antibody Positive (Negative); Hepatitis B Surface Antigen Negative (Negative); Hepatitis C Antibody Negative (Negative)
== END 2025-05-01 17:00 | disposition home or self-care (01) ==
LOC: LAB 11:49
PROVIDERS: ATTEND Licensed Practical Nurse
DX: E78.5 Hyperlipidemia, unspecified (principal); E55.9 Vitamin D deficiency, unspecified; Z13.1 Encounter for screening for diabetes mellitus; Z00.01 Encounter for general adult medical examination with abnormal findings; Z13.29 Encounter for screening for other suspected endocrine disorder; Z12.11 Encounter for screening for malignant neoplasm of colon; Z79.899 Other long term (current) drug therapy
CPT/HCPCS: 36415; 80053; 80061; 82043; 82274; 82306; 83036; 84153; 84443; 85025; 86704; 86706; 86708; 86803; 87340